=== PATIENT | female | born 1990 | race African-American/Black ===

== ENCOUNTER 2018-10-12 12:25 | Emergency (ER) | payer MEDICAID ==
[~2018-10-12] VITALS: Ht 157.5 cm; Wt 92.3 kg
[2018-10-12 14:02] LABS: BASOPHILS % 1.5 % (0.0-2.0); EOSINOPHILS % 3.3 % (0.0-5.0); HEMOGLOBIN. 12.3 g/dL (12.0-16.0); LYMPHOCYTES % 33.2 % (20.0-50.0); MEAN CORPUSCULAR HEMOGLOBIN 27.1 pg (28.0-32.0); MEAN CORPUSCULAR VOLUME 83.8 fL (81.0-99.0); MEAN PLATELET VOLUME 7.7 fl (7.4-10.4); MONOCYTES % 14.9 % (2.0-8.0); NEUTROPHILS % 47.1 % (40.0-76.0); PLATELET 333 x1000/uL (130-400); RED BLOOD CELL COUNT 4.53 mill/uL (4.2-5.4); RED CELL DISTRIBUTION WIDTH 15.6 % (11.6-14.6)
[2018-10-12 14:13] LABS: CHLORIDE 106 mEq/L (98-107)
[2018-10-12 17:36] VITALS: BP 121/73
== END 2018-10-12 17:37 | disposition home or self-care (01) ==
LOC: ER 14:31
DX: R07.9 Chest pain, unspecified (principal)
CPT/HCPCS: 36415; 71045; 81025; 84484; 93005; 99284

== ENCOUNTER 2024-08-29 18:39 | Emergency (ER) | payer MEDICAID ==
[~2024-08-29] VITALS: Ht 167.6 cm; Wt 91.0 kg
[2024-08-29 18:56] VITALS: BP 174/104; TEMP 97.9; O2SAT 100
[2024-08-29 18:58] VITALS: PULSE 101; RESP 18; O2SAT 98
[2024-08-29 19:34] LABS: BASOPHILS % 0.8 % (0.0-2.0); EOSINOPHILS % 2.2 % (0.0-5.0); HEMATOCRIT. 36.5 % (36.0-48.0); HEMOGLOBIN. 11.9 g/dL (12.0-16.0); LYMPHOCYTES % 36.2 % (20.0-50.0); MEAN CORPUSCULAR HEMOGLOBIN 26.4 pg (28.0-32.0); MEAN CORPUSCULAR HGB CONC 32.5 g/dL (31.0-37.0); MEAN CORPUSCULAR VOLUME 81.1 fL (81.0-99.0); MEAN PLATELET VOLUME 7.3 fl (7.4-10.4); MONOCYTES % 9.4 % (2.0-8.0); NEUTROPHILS % 51.4 % (40.0-76.0); PLATELET 343 x1000/uL (130-400); RED CELL DISTRIBUTION WIDTH 17.6 % (11.6-14.6); WHITE BLOOD COUNT 3.5 x1000/uL (4.5-11.0)
[2024-08-29 19:47] LABS: CARBON DIOXIDE 28 mEq/L (21-32); CHLORIDE 105 mEq/L (98-107); POTASSIUM 3.6 mEq/L (3.5-5.1); SODIUM 139 mEq/L (136-145)
[2024-08-29 19:48] LABS: CALCIUM 9.3 mg/dL (8.7-10.4)
[2024-08-29 19:52] LABS: CREATININE 0.9 mg/dL (0.6-1.0); GLUCOSE 83 mg/dL (70-105)
[2024-08-29 19:53] LABS: UREA NITROGEN BLOOD 10 mg/dL (9-23)
[2024-08-29 20:14] LABS: TROPONIN I HIGH SENSITIVITY < 4 ng/L (3.0-34)
[2024-08-29] MEDS ORDERED: AMLODIPINE 10MG TABLET PO ONE (20:30)
[2024-08-29] MEDS ORDERED: DIPHENHYDRAMINE 25MG CAPSULE PO ONE (20:30)
[2024-08-29] MEDS ORDERED: AMLODIPINE 5MG TABLET PO NR (20:30)
[2024-08-29] MEDS ORDERED: PREDNISONE 20MG TABLET PO ONE (20:30)
[2024-08-29 20:34] LABS: CLARITY URINE CLEAR (CLEAR); COLOR URINE YELLOW (YELLOW); GLUCOSE URINE NEGATIVE (NEGATIVE); KETONES URINE NEGATIVE (NEGATIVE); LEUKOCYTE ESTERASE URINE NEGATIVE (NEGATIVE); NITRITE URINE POSITIVE (NEGATIVE); OCCULT BLOOD URINE 1+ (NEGATIVE); PROTEIN URINE NEGATIVE (NEGATIVE); SPECIFIC GRAVITY URINE 1.019 (1.005-1.030); UROBILINOGEN URINE 0.2 E.U./dL (0.2-1.0)
[2024-08-29 21:08] LABS: WBC URINE 0-2 /hpf (0-2)
[2024-08-29 21:09] LABS: BACTERIA URINE 3+; RBC URINE NONE SEEN /hpf (0-2); SQUAMOUS EPITHELIAL CELL URINE 2+ /lpf (RARE/1+)
[2024-08-29] MEDS ORDERED: DIPHENHYDRAMINE 25MG CAPSULE PO NR (21:45)
[2024-08-29] MEDS ORDERED: PREDNISONE 20MG TABLET PO NR (21:45)
[2024-08-29] MEDS ORDERED: P50 MT (23:58)
[2024-08-29] MEDS ORDERED: TOPUD MT (23:58)
[2024-08-29] MEDS ORDERED: CLAR10 MT (23:58)
[2024-08-29] MEDS ORDERED: NITR-87 MT (23:58)
[2024-08-29] MEDS ORDERED: IBUP-1523 MT (23:58)
== END 2024-08-29 22:00 | disposition left against medical advice (07) ==
LOC: ER 18:39
DX: J30.9 Allergic rhinitis, unspecified (principal); N39.0 Urinary tract infection, site not specified; I10 Essential (primary) hypertension; Z79.899 Other long term (current) drug therapy
CPT/HCPCS: 99285; 71045; 80048; 81003; 85025; 84484; 36415; 93005; Q0163; J7512

== ENCOUNTER 2025-04-19 11:17 | Emergency (ER) | payer MEDICAID ==
[~2025-04-19] VITALS: Ht 157.5 cm; Wt 100.0 kg
[~2025-04-19 11:17] MED LIST: CLAR10 MT; IBUP-1523 MT; NITR-87 MT; P50 MT; TOPUD MT
[2025-04-19 11:42] VITALS: O2SAT 99
[2025-04-19] MEDS ORDERED: BO1 TP (12:05)
[2025-04-19] MEDS ORDERED: CEPH500C2 MT (12:05)
[2025-04-19 12:28] VITALS: BP 158/97; PULSE 91; RESP 17; TEMP 36.7; O2SAT 99
== END 2025-04-19 12:33 | disposition home or self-care (01) ==
LOC: ER 11:17
DX: L02.31 Cutaneous abscess of buttock (principal); I10 Essential (primary) hypertension; Z79.899 Other long term (current) drug therapy
CPT/HCPCS: 99283